=== PATIENT | female | born 1985 | race Asian ===

== ENCOUNTER → 2017-07-14 | Outpatient (CLI) | payer BC, OTHER ==
[~2017-07-14] MED LIST: PRENTAB44 PO
[2017-07-14 14:26] LABS: URINE APPEARANCE CLEAR (CLEAR); URINE BILIRUBIN NEG (NEG); URINE COLOR YELLOW; URINE EPITHELIAL CELL AUTO >30 /lpf (0-5); URINE NITRITE NEG (NEG); URINE PH 6.5 (4.5-7.5); URINE SPECIFIC GRAVITY 1.021 (1.000-1.030); UROBILINOGEN NEG (NEG)
[2017-07-14 14:31] LABS: MANUAL MICROSCOPIC REQUIRED? NO; REVIEW REQ? NO
== END | disposition home or self-care (01) ==
LOC: C.LABSPEC 13:17
PROVIDERS: ATTEND Obstetrics & Gynecology
DX: Z34.91 Encounter for supervision of normal pregnancy, unspecified, first trimester (principal); Z3A.00 Weeks of gestation of pregnancy not specified

== ENCOUNTER → 2017-07-19 | Outpatient (CLI) | payer BC ==
[2017-07-19 13:09] LABS: BASO % 0.2 %; BASO ABS # 0.01 K/uL (0-0.2); COMPLETE YES; EOS % 1.9 %; HEMATOCRIT 39.2 % (37-47); IG% 0.2 %; LYMPH % 22.5 %; LYMPH ABS # 1.17 K/uL (1.2-3.4); MEAN CELL VOLUME 90.1 fL (80-100); MEAN CORPUSCULAR HEMOGLOBIN 29.7 pg (25-34); MEAN CORPUSCULAR HGB CONC 32.9 g/dl (32-36); MEAN PLATELET VOLUME 11.1 fL (7.4-10.4); NEUT % 69.2 %; PLATELET COUNT 214 K/uL (130-400); RED BLOOD COUNT 4.35 M/uL (4.2-5.4); WHITE BLOOD COUNT 5.19 K/uL (4.8-10.8)
[2017-07-22 01:46] LABS: CHLAMYDIA TRACH RNA*** NOT DETECTED (NOT DETECTED); GC (NEIS GONORRHOEAE)RNA** NOT DETECTED (NOT DETECTED)
== END | disposition home or self-care (01) ==
LOC: C.LAB1850 11:55
PROVIDERS: ATTEND Obstetrics & Gynecology
DX: Z34.91 Encounter for supervision of normal pregnancy, unspecified, first trimester (principal)

== ENCOUNTER → 2017-08-16 | Outpatient (CLI) | payer BC ==
[2017-08-16 16:38] LABS: GTGD 50 Grams
== END | disposition home or self-care (01) ==
LOC: C.LAB1850 14:48
PROVIDERS: ATTEND Obstetrics & Gynecology
DX: Z34.91 Encounter for supervision of normal pregnancy, unspecified, first trimester (principal)

== ENCOUNTER → 2017-11-08 | Outpatient (CLI) | payer OTHER ==
[2017-11-08 16:41] LABS: HEMATOCRIT 35.2 % (37-47); HEMOGLOBIN 11.6 g/dL (12.0-16.0)
== END | disposition home or self-care (01) ==
LOC: C.LAB1850 15:19
PROVIDERS: ATTEND Obstetrics & Gynecology
DX: Z34.83 Encounter for supervision of other normal pregnancy, third trimester (principal)

== ENCOUNTER → 2017-11-19 | Outpatient (CLI) | payer OTHER | END | disposition home or self-care (01) | LOC: C.LAB1850 09:00 | PROVIDERS: ATTEND Obstetrics & Gynecology | DX: O28.1 Abnormal biochemical finding on antenatal screening of mother (principal); Z3A.00 Weeks of gestation of pregnancy not specified ==

== ENCOUNTER → 2017-12-29 | Outpatient (CLI) | payer OTHER | END | disposition home or self-care (01) | LOC: C.LABSPEC 17:38 | PROVIDERS: ATTEND Obstetrics & Gynecology | DX: Z34.83 Encounter for supervision of other normal pregnancy, third trimester (principal) ==

== ENCOUNTER 2018-01-26 01:49 | Inpatient (IN) | payer OTHER ==
[~2018-01-26] VITALS: Ht 162.6 cm; Wt 71.8 kg
[2018-01-26] MEDS ORDERED: LACTATED RINGER'S 1000ML 1,000 ML IV PRN (02:16)
[2018-01-26] MEDS ORDERED: EpHEDrine SULFATE INJ 50 MG/ML AMP ONE (02:30)
[2018-01-26] MEDS ORDERED: BUPIVACAINE 0.25% 30 ML VIAL ONE (02:30)
[2018-01-26] MEDS ORDERED: FENTANYL CITRATE INJ 50 MCG/1 ML 2 ML VIAL ONE (02:31)
[2018-01-26] MEDS ORDERED: FENTANYL 2MCG/ML ROPIV 1.25MG/ML 100ML BAG ONE (02:31)
[2018-01-26] MEDS ORDERED: FOLI1TAB8 PO (02:36)
[2018-01-26 02:40] VITALS: Ht 162.6 cm; Wt 71.8 kg
[2018-01-26 02:46] LABS: HEMATOCRIT 33.6 % (37-47); HEMOGLOBIN 11.3 g/dL (12.0-16.0); MEAN CELL VOLUME 83.8 fL (80-100); MEAN CORPUSCULAR HEMOGLOBIN 28.2 pg (25-34); MEAN CORPUSCULAR HGB CONC 33.6 g/dl (32-36); MEAN PLATELET VOLUME 10.6 fL (7.4-10.4); PLATELET COUNT 187 K/uL (130-400); RED CELL DISTRIBUTION WIDTH CV 13.7 % (11.5-14.5); RED CELL DISTRIBUTION WIDTH SD 41.6 fL (36.4-46.3); WHITE BLOOD COUNT 13.35 K/uL (4.8-10.8)
[2018-01-26] MEDS: LACTATED RINGER'S 1000ML 1,000 ML IV SCH ×2 (03:24→06:05)
[2018-01-26] MEDS ORDERED: NALOXONE HCL INJ 1 MG in SODIUM CHLORIDE 0.9% 1000ML 1,000 ML IV PRN (03:35)
[2018-01-26] MEDS ORDERED: LACTATED RINGER'S 1000ML 500 ML IV PRN (03:35)
[2018-01-26] MEDS ORDERED: DiphenhydrAMINE HCL 50 MG/ML VIAL IV PRN (03:45)
[2018-01-26] MEDS ORDERED: EpHEDrine SULFATE INJ 50 MG/ML AMP IV PRN (03:45)
[2018-01-26] MEDS ORDERED: ONDANSETRON INJ 2 MG/ML 2 ML VIAL IV PRN (03:45)
[2018-01-26] MEDS ORDERED: NALBUPHINE HCL INJ 10 MG/ML AMP IV PRN (03:45)
[2018-01-26] MEDS ORDERED: NALOXONE HCL INJ 0.4 MG/1 ML VIAL/CARP IV PRN (03:45)
[2018-01-26] MEDS: FENTANYL 2MCG/ML ROPIV 1.25MG/ML 100ML BAG EPI PRN ×2 (04:33→07:04)
[2018-01-26] MEDS ORDERED: OXYTOCIN 30 UNITS/500ML NSS IV ONE (08:06)
[2018-01-26] MEDS ORDERED: LANOLIN OINT EXT PRN (09:00)
[2018-01-26] MEDS ORDERED: ACETAMINOPHEN/CODEINE 300/30MG TAB PO PRN ×2 (09:00)
[2018-01-26] MEDS ORDERED: HYDROCORTISONE ACETATE 25 MG SUPP PR PRN (09:00)
[2018-01-26] MEDS ORDERED: ACETAMINOPHEN 325 MG TAB PO PRN (09:00)
[2018-01-26] MEDS ORDERED: OXYTOCIN 30 UNITS/500ML NSS IV PRN (09:00)
[2018-01-26] MEDS ORDERED: IBUPROFEN 600 MG TAB PO PRN (09:00)
[2018-01-26] MEDS ORDERED: BENZOCAINE 20% AER SPR 82.5 GM CAN EXT PRN (09:00)
[2018-01-26] MEDS ORDERED: SUPERCREAM 0.870 % 15GM JAR EXT PRN (09:00)
[2018-01-26] MEDS ORDERED: DIPHTHERIA/TETANUS/PERTUSSIS 0.5 ML SYR/VIAL IM. ONE (09:00)
--- NOTE | 2018-01-26 10:34 | DELIVERY SUMMARY ---
DATE OF OPERATION: 01/26/2018 VAGINAL DELIVERY SUMMARY DATE OF DELIVERY: 01/26/2018 PREDELIVERY DIAGNOSES: 1. A 32-year-old G4, P1-0-2-1 at 40 weeks 0 days. 2. Spontaneous labor. POSTDELIVERY DIAGNOSES: 1. A 32-year-old G4, P1-0-2-1 at 40 weeks 0 days. 2. Spontaneous labor. PROCEDURE: Spontaneous vaginal delivery and repair of a second-degree perineal laceration. COMPLICATIONS: None. ESTIMATED BLOOD LOSS: 300 mL. FINDINGS: Viable male , Apgars 8 and 9, weight pending. Please see nursery records. DESCRIPTION OF DELIVERY: The patient progressed to complete with epidural anesthesia. Membranes were ruptured for clear fluid just prior to her beginning to push. She then spontaneously vaginally delivered a viable male from the cephalic presentation. The head delivered in the left occiput anterior position. Nuchal cord x1 was noted and easily reduced. The anterior shoulder was delivered followed by the posterior shoulder followed by the body. The baby was then placed on mother's abdomen and a spontaneous cry was heard. The cord was doubly clamped and cut. A segment was retained for cord gases. Cord blood was obtained and the placenta was delivered spontaneously intact with a 3-vessel cord. Pitocin was given and the uterus became to clamp down. The bladder was emptied for an approximately 10 mL of urine. The cervix, vagina, and perineum were inspected and a second-degree perineal laceration was noted. The vagina and uterus were swept of all clots and debris. The laceration was repaired in a standard fashion with 3-0 Vicryl in a running stitch. Excellent hemostasis was observed. The mother and baby recovered in stable and good condition in the room. All sponge, instrument, and needle counts were correct at the conclusion of the delivery x2. I attest to the content of the Intraoperative Record and any orders documented therein. Any exception s are noted below.
--- NOTE | 2018-01-26 10:59 | Anesthesia Procedure Note ---
Anesthesia Epidural Removal Nt Date & Time January 26, 2018 at 10:58 Vital Signs Pain Intensity: 0.0 Notes Mental Status: alert / awake / arousable, participated in evaluation Nausea / Vomiting: adequately controlled Pain: adequately controlled Airway Patency, RR, SpO2: stable & adequate BP & HR: stable & adequate Hydration State: stable & adequate Neuraxial Anesthesia: was administered, sensory block is resolving Anesthetic Complications: no major complications apparent, pt satisfied with anesthetic care Epidural: removed without complications, with tip intact
[2018-01-26 11:15] VITALS: BP 97/64; PULSE 77; TEMP 36.7; O2SAT 97
[2018-01-26 16:05] VITALS: BP 100/64; PULSE 73; TEMP 37.1; O2SAT 98
--- NOTE | 2018-01-26 16:29 | Discharge Instructions ---
Discharge Instructions Date of Service January 26, 2018. Admission Reason for Admission: Normal Labor And Delivery Discharge Discharge Diagnosis / Problem: Vaginal Delivery Discharge Goals Goal(s): Routine recovery after delivery Medications Continue Dispensed Medications: supercream, dermaplast, tucks, lansinoh Activity Recommendations Activity Limitations: per Instructions/Follow-up section . Instructions / Follow-Up Instructions / Follow-Up ACTIVITY RECOMMENDATIONS: * Gradual return to full activity over the next 2-3 weeks. * No lifting - nothing heavier than baby over the next 2-3 weeks. * Do not engage in vigorous exercise, sexual activity or sports until cleared by your physician. * Do not drive or operate any motorized equipment until cleared by your physician. * You may shower/bathe daily. MEDICATIONS: For discomfort or pain, you may use Acetaminophen (Tylenol), Ibuprofen (Advil), or Naproxen (Aleve) following the package directions. For constipation you may use Colace following the package directions. BREAST CARE: If you are not breast feeding: * Wear a supportive bra 24 hours a day for one to two weeks. * Avoid stimulating your breasts and nipples as much as possible during the first few weeks after delivery. * When taking a shower, have the warm water hit your back, not breasts. * When your breasts feel full, apply ice packs. Usually three to four times a day helps ease the discomfort. * Take a mild pain medication (Tylenol / Motrin) when you are uncomfortable. If breast feeding: * Use breast milk to lubricate nipples. Lansinoh cream may be used for sore nipples. You do not need to remove cream prior to breast feeding. If using a different brand of cream, check the label for directions regarding removal of cream prior to nursing. * Wear a supportive bra. * If having problems with breasts or breast feeding, call a furniture rental consultant or your health care provider. EPISIOTOMY CARE: After delivery, if you have an episiotomy (stitches), the following steps will ease discomfort and aid healing. * For the first 24 hours after delivery, place ice packs next to your episiotomy to help reduce swelling. * After the first 24 hour-period, sitz baths, either portable or in the tub, are suggested. A shower with a shower arm sprayed over the episiotomy may be comforting. * Loren care should be done after each voiding and bowel movement. Squirt warm water from a plastic bottle over the perineum (region of the body between the anus and urinary opening) and pat dry. * Use Dermoplast to ease discomfort. Shake container. [place] directly over the episiotomy. Place a Tucks on a clean sanitary pad next to your episiotomy. SPECIAL CARE INSTRUCTIONS: When you are discharged from the hospital, it is important for you to follow the instructions listed below: * During the first week at home, you should be able to care for yourself and your baby. In addition, the usual light household activities are encouraged. * Limit your activities to the way you feel. Do not try to clean the house or move furniture. Be sensible. * If you actively engage in sports and have done so up until the time of your delivery, you may resume these activities as soon as you feel able. This may take up to one month or even longer. Use good judgment. * Continue to take your vitamins for at least six weeks after the of your baby. * Your diet need not be limited unless you were on a special diet before your delivery. Breast-feeding mothers need around 2500 calories per day and at least 64-80 ounces of fluid per day (8 to 10 glasses). * You should eat foods from the four major food groups. Crash diets or fad diets are to be avoided. Eating lean meats, fresh fruits and vegetables, low-fat dairy products, high fiber foods and a regular exercise program, will help you get back to your pre- weight without putting your health at risk. * Constipation is sometimes a problem after delivery. Take a mild laxative as needed. If breast feeding, Milk of Magnesia is acceptable to use. You may use a suppository or Fleets enema if no episiotomy. * A daily shower or tub bath is suggested. Be sure to thoroughly and gently dry the perineum. * A bloody vaginal discharge will usually continue until around four weeks post . A small amount of bleeding may continue for as long as six weeks. Vaginal discharge changes from the bright red bleeding after delivery to pink then brownish and finally yellowish-pink before becoming white and disappearing. * Bleeding may increase with activity. Your first period may come in 4-8 weeks. If you are breast feeding, your period may be delayed even longer. * [place] (sex) can begin whenever both you and your partner feel comfortable and do not have any form of genital infection. It is recommended that you wait at least six weeks for internal and external healing to occur. If you have questions, please talk to your health care practitioner. A condom should be used to prevent infection and . * Foreplay, gentle intercourse and lubrication is very important the first several times to prevent pain. A water-based lubricant such as K-Y jelly or Astroglide may be used. * If you have RH negative blood and your baby is RH positive, you will receive RHOGAM by injection prior to discharge. The nurse will give you a card to keep with you that has the date and place that you received RHOGAM after delivery. * During your care, you had a Rubella screen done to check for the presence of rubella antibodies in your blood. If your test was negative, you will receive a Rubella vaccine prior to discharge. This vaccine may cause a fever, soreness at the injection site and flu-like symptoms. If these symptoms persist, notify your health care practitioner. is not advised for one month after a Rubella vaccine. * Verbalizes understanding of car seat law as reviewed with patient nursing. * Car Seat hand-out given and reviewed with patient by nursing. * Shaken baby information reviewed with patient by nursing. Call you doctor if: * Heavy bleeding (saturating several pads an hour) or passing clots the size of your fist. * A fever >101 degrees F (38.3 degrees C) on two occasions four hours apart and /or chills. * Unusual pain in the pelvic or vaginal areas. * "Baby Blues" lasting longer than two weeks. If you have any questions or concerns, call your health care practitioner at . FOLLOW UP VISIT: * Please call the office at to schedule a 6 week examination. It is important you keep this appointment. It is important for you to make arrangements for either yearly or twice yearly check-ups thereafter. Current Hospital Diet Patient's current hospital diet: Regular OB Diet Discharge Diet Recommended Diet: Regular Diet Pending Studies Studies pending at discharge: no Medical Emergencies . Who to Call and When: Medical Emergencies: If at any time you feel your situation is an emergency, please call 911 immediately. . Non-Emergent Contact Non-Emergency issues call your: Primary Care Provider . . "Provider Documentation" section prepared by Maite Cleveland. .
[2018-01-26 19:45] VITALS: BP 106/66; PULSE 82; TEMP 37; O2SAT 98
[2018-01-26] MEDS: DOCUSATE SODIUM 100 MG CAP PO SCH (21:07)
[2018-01-26 23:25] VITALS: BP 103/69; PULSE 60; TEMP 36.7; O2SAT 99
[2018-01-27 03:35] VITALS: BP 99/61; PULSE 63; TEMP 36.5; O2SAT 97
--- NOTE | 2018-01-27 06:47 | Progress Note ---
Subjective January 27, 2018. Subjective conversation w/ patient Ambulation: limited ambulation Voiding: castano catheter in place (had difficulty voiding independently) Diet Tolerance: Regular Diet [place]: Moderate Feeding Type: Breast Feeding (both breast and bottle feeding) Pain: 1/10 pain reported, improved with analgesia Review of Systems Constitutional: No fever, No chills Respiratory: No shortness of breath Cardiac: No chest pain Abdomen: No nausea, No vomiting Objective Vital Signs Date Time Temp Pulse Resp B/P (MAP) Pulse Ox O2 Delivery O2 Flow Rate FiO2 01/27/18 03:35 36.5 63 16 99/61 (74) 97 Room Air 01/26/18 23:25 Room Air 01/26/18 23:25 36.7 60 16 103/69 (80) 99 Room Air 01/26/18 19:45 37.0 82 18 106/66 (79) 98 Room Air 01/26/18 16:05 37.1 73 18 100/64 (76) 98 Room Air 01/26/18 16:05 98 Room Air 01/26/18 11:15 36.7 77 18 97/64 (75) 97 Room Air Physical Exam General Appearance: WELL-APPEARING, WD/WN, NO APPARENT DISTRESS Respiratory/Chest: lungs clear, normal breath sounds Cardiovascular: regular rate, rhythm Abdomen: soft Fundus: Firm, Non-Tender, Relation to Umbilicus (1 cm below) Extremities: no pedal edema, no calf tenderness Laboratory Results Last 24 Hours Test 01/27/18 04:44 Assessment and Plan Post- Day#: 1 Continue Routine Care: 32F s/p NVD day 1 - A+, Rubella Immune, GBS -ve - remove catheter later today and trial of independent voiding - Vital signs reviewed and WNL - Encourage ambulation, monitor and control pain with Motrin PRN - Encourage breast feeding Resident Physician Supervision Note: I was present with Dr. Cleveland during the history and exam. I discussed the case with the resident and agree with the findings and plan as documented in the note. Any exceptions or clarifications are listed here: PPD#1 doing well. Unable to void on own last night, good urine output in castano, remove today and resume voiding trial. Documented By: Yanelis Chun Resident Tracking Resident Involvement: Resident Care Provided Care Provided: OB Delivery
[2018-01-27 07:02] LABS: HEMATOCRIT 31.9 % (37-47); HEMOGLOBIN 10.5 g/dL (12.0-16.0)
[2018-01-27 08:00] VITALS: BP 97/60; TEMP 36.4; O2SAT 98
[2018-01-27] MEDS: PRENATAL VITAMIN TAB PO SCH (08:51)
[2018-01-27] MEDS: DOCUSATE SODIUM 100 MG CAP PO SCH ×2 (08:51→19:44)
[2018-01-27 15:15] VITALS: BP 96/64; PULSE 74; TEMP 36.5; O2SAT 97
[2018-01-27] MEDS ORDERED: LIDOCAINE 2% JELLY 5 ML TUBE ONE (17:07)
[2018-01-27] MEDS ORDERED: BISACODYL 5 MG TABEC PO SCH (20:00)
[2018-01-27 23:15] VITALS: BP 88/54; PULSE 78; TEMP 37; O2SAT 98
--- NOTE | 2018-01-28 06:40 | Progress Note ---
Subjective January 28, 2018. Subjective conversation w/ patient Ambulation: limited ambulation (castano catheter in place) Voiding: castano catheter in place (failed independent voiding trial yesterday) Diet Tolerance: Regular Diet L[place]: Moderate Feeding Type: Breast Feeding (breast and bottle feeding) Pain: Abdominal cramps noted Review of Systems Constitutional: No fever, No chills Respiratory: No shortness of breath Cardiac: No chest pain Abdomen: No nausea, No vomiting Objective Vital Signs Date Time Temp Pulse Resp B/P (MAP) Pulse Ox O2 Delivery O2 Flow Rate FiO2 01/27/18 23:15 37.0 78 20 88/54 (65) 98 Room Air 01/27/18 23:15 98 Room Air 01/27/18 15:15 97 Room Air 01/27/18 15:15 36.5 74 16 96/64 (75) 97 Room Air 01/27/18 08:00 36.4 18 97/60 (72) 98 Room Air 01/27/18 08:00 98 Room Air Physical Exam General Appearance: WELL-APPEARING, WD/WN, NO APPARENT DISTRESS Respiratory/Chest: lungs clear, normal breath sounds Cardiovascular: regular rate, rhythm Abdomen: soft Fundus: Firm, Non-Tender, Relation to Umbilicus (1 below) Extremities: no pedal edema, no calf tenderness Laboratory Results Last 24 Hours Test 01/27/18 06:50 Hemoglobin 10.5 g/dL Hematocrit 31.9 % Assessment and Plan Post- Day#: 2 Continue Routine Care: 32F s/p NVD day 2 - A+, Rubella Immune, GBS -ve - failed independent voiding trial last night - remove catheter later today and voiding trial again - encourage fluid intake - good urine output from castano - Vital signs reviewed and WNL - monitor and control pain with Motrin PRN - Encourage breast feeding - barrier to d/c is difficulty w/voiding Resident Physician Supervision Note: I interviewed and examined the patient. Discussed with Dr. Cooper and agree with findings and plan as documented in the note. Any exceptions or clarifications are listed here: see separate Attending note Documented By: Aiden Casanova Resident Tracking Resident Involvement: Resident Care Provided Care Provided: OB Delivery
--- NOTE | 2018-01-28 06:41 | Progress Note ---
Subjective January 28, 2018. Subjective conversation w/ patient, physical exam Voiding: castano catheter in place (had difficulty voiding independently) Feeding Type: Breast Feeding Objective Vital Signs Date Time Temp Pulse Resp B/P (MAP) Pulse Ox O2 Delivery O2 Flow Rate FiO2 01/27/18 23:15 37.0 78 20 88/54 (65) 98 Room Air 01/27/18 23:15 98 Room Air 01/27/18 15:15 97 Room Air 01/27/18 15:15 36.5 74 16 96/64 (75) 97 Room Air 01/27/18 08:00 36.4 18 97/60 (72) 98 Room Air 01/27/18 08:00 98 Room Air Physical Exam General Appearance: WELL-APPEARING, NO APPARENT DISTRESS Abdomen: normal bowel sounds Fundus: Firm Extremities: no calf tenderness Laboratory Results Last 24 Hours Test 01/27/18 06:50 Hemoglobin 10.5 g/dL Hematocrit 31.9 % Assessment and Plan Post- Day#: 2 Continue Routine Care: - patient was unable to void and Castano re-inserted - will d/c home with Castano in place - will return Wednesday 01/31 for Castano removal in office
--- NOTE | 2018-01-28 06:45 | Discharge Instructions ---
Discharge Instructions Date of Service January 28, 2018. Admission Reason for Admission: Normal Labor And Delivery Discharge Discharge Diagnosis / Problem: same Discharge Goals Goal(s): Routine recovery after delivery Activity Recommendations Activity Limitations: as noted below . Instructions / Follow-Up Instructions / Follow-Up ACTIVITY RECOMMENDATIONS: * Gradual return to full activity over the next 2-3 weeks. * No lifting - nothing heavier than baby over the next 2-3 weeks. * Do not engage in vigorous exercise, sexual activity or sports until cleared by your physician. * Do not drive or operate any motorized equipment until cleared by your physician. * You may shower/bathe daily. MEDICATIONS: For discomfort or pain, you may use Acetaminophen (Tylenol), Ibuprofen (Advil), or Naproxen (Aleve) following the package directions. For constipation you may use Colace following the package directions. BREAST CARE: If you are not breast feeding: * Wear a supportive bra 24 hours a day for one to two weeks. * Avoid stimulating your breasts and nipples as much as possible during the first few weeks after delivery. * When taking a shower, have the warm water hit your back, not breasts. * When your breasts feel full, apply ice packs. Usually three to four times a day helps ease the discomfort. * Take a mild pain medication (Tylenol / Motrin) when you are uncomfortable. If breast feeding: * Use breast milk to lubricate nipples. Lansinoh cream may be used for sore nipples. You do not need to remove cream prior to breast feeding. If using a different brand of cream, check the label for directions regarding removal of cream prior to nursing. * Wear a supportive bra. * If having problems with breasts or breast feeding, call a java consultant or your health care provider. EPISIOTOMY CARE: After delivery, if you have an episiotomy (stitches), the following steps will ease discomfort and aid healing. * For the first 24 hours after delivery, place ice packs next to your episiotomy to help reduce swelling. * After the first 24 hour-period, sitz baths, either portable or in the tub, are suggested. A shower with a shower arm sprayed over the episiotomy may be comforting. * Loren care should be done after each voiding and bowel movement. Squirt warm water from a plastic bottle over the perineum (region of the body between the anus and urinary opening) and pat dry. * Use Dermoplast to ease discomfort. Shake container. [place] directly over the episiotomy. Place a Tucks on a clean sanitary pad next to your episiotomy. SPECIAL CARE INSTRUCTIONS: When you are discharged from the hospital, it is important for you to follow the instructions listed below: * During the first week at home, you should be able to care for yourself and your baby. In addition, the usual light household activities are encouraged. * Limit your activities to the way you feel. Do not try to clean the house or move furniture. Be sensible. * If you actively engage in sports and have done so up until the time of your delivery, you may resume these activities as soon as you feel able. This may take up to one month or even longer. Use good judgment. * Continue to take your vitamins for at least six weeks after the of your baby. * Your diet need not be limited unless you were on a special diet before your delivery. Breast-feeding mothers need around 2500 calories per day and at least 64-80 ounces of fluid per day (8 to 10 glasses). * You should eat foods from the four major food groups. Crash diets or fad diets are to be avoided. Eating lean meats, fresh fruits and vegetables, low-fat dairy products, high fiber foods and a regular exercise program, will help you get back to your pre- weight without putting your health at risk. * Constipation is sometimes a problem after delivery. Take a mild laxative as needed. If breast feeding, Milk of Magnesia is acceptable to use. You may use a suppository or Fleets enema if no episiotomy. * A daily shower or tub bath is suggested. Be sure to thoroughly and gently dry the perineum. * A bloody vaginal discharge will usually continue until around four weeks post . A small amount of bleeding may continue for as long as six weeks. Vaginal discharge changes from the bright red bleeding after delivery to pink then brownish and finally yellowish-pink before becoming white and disappearing. * Bleeding may increase with activity. Your first period may come in 4-8 weeks. If you are breast feeding, your period may be delayed even longer. * [place] (sex) can begin whenever both you and your partner feel comfortable and do not have any form of genital infection. It is recommended that you wait at least six weeks for internal and external healing to occur. If you have questions, please talk to your health care practitioner. A condom should be used to prevent infection and . * Foreplay, gentle intercourse and lubrication is very important the first several times to prevent pain. A water-based lubricant such as K-Y jelly or Astroglide may be used. * If you have RH negative blood and your baby is RH positive, you will receive RHOGAM by injection prior to discharge. The nurse will give you a card to keep with you that has the date and place that you received RHOGAM after delivery. * During your care, you had a Rubella screen done to check for the presence of rubella antibodies in your blood. If your test was negative, you will receive a Rubella vaccine prior to discharge. This vaccine may cause a fever, soreness at the injection site and flu-like symptoms. If these symptoms persist, notify your health care practitioner. is not advised for one month after a Rubella vaccine. * Verbalizes understanding of car seat law as reviewed with patient nursing. * Car Seat hand-out given and reviewed with patient by nursing. * Shaken baby information reviewed with patient by nursing. Call you doctor if: * Heavy bleeding (saturating several pads an hour) or passing clots the size of your fist. * A fever >101 degrees F (38.3 degrees C) on two occasions four hours apart and /or chills. * Unusual pain in the pelvic or vaginal areas. * "Baby Blues" lasting longer than two weeks. If you have any questions or concerns, call your health care practitioner at . FOLLOW UP VISIT: * Come to the office on Wednesday01/31/18 for John removal * Please call the office at to schedule a 6 week examination. It is important you keep this appointment. It is important for you to make arrangements for either yearly or twice yearly check-ups thereafter. Current Hospital Diet Patient's current hospital diet: Regular OB Diet Discharge Diet Recommended Diet: Regular Diet Pending Studies Studies pending at discharge: no Medical Emergencies . Who to Call and When: Medical Emergencies: If at any time you feel your situation is an emergency, please call 911 immediately. . Non-Emergent Contact Non-Emergency issues call your: [place] Call Non-Emergent contact if: you have a fever, temperature is above 100.5 . . "Provider Documentation" section prepared by Aiden Casanova. .
[2018-01-28] MEDS ORDERED: BISACODYL 10 MG SUPP PR PRN (07:00)
[2018-01-28 08:10] VITALS: O2SAT 98
[2018-01-28] MEDS: PRENATAL VITAMIN TAB PO SCH (08:23)
[2018-01-28] MEDS: DOCUSATE SODIUM 100 MG CAP PO SCH (08:23)
[2018-01-28 13:12] VITALS: BP_DIAS 54; PULSE 78; TEMP 37
== END 2018-01-28 14:37 | disposition home or self-care (01) | DRG 775 ==
LOC: C.LD 01:49 → C.OPB 01:49 → C.LD 02:17 → C.MS4N 12:11
PROVIDERS: ADMIT Obstetrics & Gynecology; ATTEND Obstetrics & Gynecology
PROC: 10E0XZZ Delivery of Products of Conception, External Approach (ICD-10-PCS; principal; 2018-01-26)
PROC: 0KQM0ZZ Repair Perineum Muscle, Open Approach (ICD-10-PCS; principal; 2018-01-26)
DX: O70.1 Second degree perineal laceration during delivery (principal); Z37.0 Single live birth; Z3A.40 40 weeks gestation of pregnancy

== ENCOUNTER → 2018-04-06 | Outpatient (CLI) | payer OTHER ==
[~2018-04-06] MED LIST changes: +FOLI1TAB8 PO
== END | disposition home or self-care (01) ==
LOC: C.PAPS 18:13
PROVIDERS: ATTEND Obstetrics & Gynecology
DX: R87.615 Unsatisfactory cytologic smear of cervix (principal)